=== PATIENT | male | born 1965 | race Caucasian/White ===

== ENCOUNTER 2018-06-08 15:36 | Emergency (ER) | payer MEDICAID ==
[2018-06-08 15:50] VITALS: BP 138/99
[2018-06-08] MEDS ORDERED: KETOROLAC TROMETHAMINE 60 MG/2 ML SDV IM ONE (16:10)
[2018-06-08] MEDS ORDERED: CARISOPRODOL 350 MG TABLET PO ONE (16:10)
[2018-06-08] MEDS ORDERED: PREDNISONE 20 MG TABLET PO ONE (16:11)
--- NOTE | 2018-06-08 16:16 | ER Document Report ---
ED General - General Chief Complaint: Neck Problem Stated Complaint: PAIN FROM NECK TO PEG Time Seen by Provider: 06/08/18 16:01 Notes: 53-year-old male PMH chronic neck and back pain here with complaints of left lower back pain radiating down the left leg to the foot for the past few days. He has taken [id number] pain medication for the symptoms. Pain is worse with movement. Pain is improved with minimizing movement. He has not had any incontinence retention numbness tingling weakness IV drug use. He states he was seeing Dr. Gray for pain management however he reports that Dr. Gray's office close down suddenly. TRAVEL OUTSIDE OF THE [place] IN LAST 30 DAYS: No - Related Data Allergies/Adverse Reactions: cyclobenzaprine HCl [From Flexeril] Allergy (Verified 06/08/18 15:37) Past Medical History - Social History Smoking Status: Unknown if Ever Smoked Family History: Reviewed & Not Pertinent Pulmonary Medical History: Reports: Hx Pneumonia Denies: Hx Tuberculosis Neurological Medical History: Denies: Hx Seizures GI Medical History: Reports: Hx Gastroesophageal Reflux Disease Psychiatric Medical History: Reports: Hx Bipolar Disorder, Hx Depression, Hx Schizophrenia Past Surgical History: Reports: Hx Orthopedic Surgery - spinal surgery, carpal tunnel, trigger finger. Denies: Hx Pacemaker - Immunizations Hx Diphtheria, Pertussis, Tetanus Vaccination: Yes - 4 years Review of Systems - Review of Systems Notes: See history of present illness for pertinent positive review of systems; otherwise all review of systems have been reviewed and are negative Physical Exam - Vital signs Vitals: Temp Pulse Resp BP Pulse Ox 98.3 F 100 16 138/99 H 98 06/08/18 15:49 06/08/18 15:49 06/08/18 15:49 06/08/18 15:49 06/08/18 15:49 - Notes Notes: PHYSICAL EXAMINATION: GENERAL: Well-appearing and in no acute distress. HEAD: Atraumatic, normocephalic. EYES: Pupils equal round and reactive to light, extraocular movements intact, sclera anicteric, conjunctiva are normal. ENT: nares patent, oropharynx clear without exudates. Moist mucous membranes. NECK: Normal range of motion, supple without lymphadenopathy LUNGS: CTAB and equal. No wheezes rales or rhonchi. HEART: Regular rate and rhythm without murmurs ABDOMEN: Soft, no tenderness. No facial grimacing/wincing upon palpation. No guarding, no rebound. BACK: Minimal left paraspinal lumbar muscle TTP with left sciatic groove TTP EXTREMITIES: Normal range of motion, no pitting edema. No cyanosis. NEUROLOGICAL: Cranial nerves grossly intact. Normal motor exams. Mild toe numbness (chronic) but normal sensation elsewhere PSYCH: Normal mood, normal affect. SKIN: Warm, Dry, normal turgor, no rashes or lesions noted Course - Re-evaluation Re-evalutation: 06/08/18 16:15 MEDICAL DECISION MAKING: Concern for acute on chronic low back pain No red flags that are concerning for acute emergent pathology i.e. cauda equina Will prescribe Soma prednisone meloxicam and give a dose of Toradol prednisone Soma here Instructed follow-up PCP next day or few Patient understands and agrees to the plan of care - Vital Signs Vital signs: Temp Pulse Resp BP Pulse Ox 98.3 F 100 16 138/99 H 98 06/08/18 15:49 06/08/18 15:49 06/08/18 15:49 06/08/18 15:49 06/08/18 15:49 Discharge - Discharge Clinical Impression: Left sided sciatica Condition: Good Disposition: HOME, SELF-CARE Additional Instructions: You were seen in the emergency department at [facility]. Use the prescribed medications as needed for sciatica. If you were given any sedating medications, be sure not to operate heavy machinery (example - driving) and be sure you are not too sedated to walk appropriately. Please followup with your primary physician in the next few days for further management/evaluation. Please return to the emergency department for worsening of symptoms or any symptom that you deem to be concerning or life-threatening. Thank you for allowing us to be part of your care. Prescriptions: Carisoprodol [Soma 350 Mg Tablet] 350 mg PO BIDP PRN #10 tablet PRN Reason: back pain Meloxicam 7.5 mg PO DAILYP PRN #7 tablet PRN Reason: Prednisone [Deltasone 20 mg Tablet] 3 tab PO DAILY 4 Days tablet Referrals: IVIS WILLARD, PETEC [Primary Care Provider] - Follow up as needed
== END 2018-06-08 16:27 | disposition home or self-care (01) ==
LOC: ER 15:36
DX: M54.42 Lumbago with sciatica, left side (principal); M54.2 Cervicalgia; M54.9 Dorsalgia, unspecified; G89.29 Other chronic pain; M79.605 Pain in left leg
CPT/HCPCS: 99283; 96372; J3490; J1885; J7512

== ENCOUNTER 2019-06-02 09:01 | Emergency (ER) | payer MEDICAID ==
[2019-06-02 09:25] LABS: ABSOLUTE LYMPHOCYTES (AUTO) 1.2 10^3/uL (0.5-4.7); ABSOLUTE MONOCYTES (AUTO) 0.5 10^3/uL (0.1-1.4); ABSOLUTE NEUT (AUTO) 4.2 10^3/uL (1.7-8.2); BASOPHILS % (AUTO) 0.5 % (0-2); EOSINOPHILS % (AUTO) 0.3 % (0-6); HEMATOCRIT 37.7 % (37.9-51.0); HEMOGLOBIN 12.9 g/dL (13.5-17.0); LYMPHOCYTES % (AUTO) 19.7 % (13-45); MEAN CORPUSCULAR HEMOGLOBIN 31.1 pg (27.0-33.4); MEAN CORPUSCULAR HGB CONC 34.1 g/dL (32.0-36.0); MEAN CORPUSCULAR VOLUME 91 fl (80-97); MONOCYTES % (AUTO) 7.8 % (3-13); PLATELET COUNT 187 10^3/uL (150-450); RED BLOOD COUNT 4.14 10^6/uL (4.35-5.55); RED CELL DISTRIBUTION WIDTH 13.9 % (11.5-14.0); SEGMENTED NEUTROPHILS % (AUTO) 71.7 % (42-78); TOTAL CELLS COUNTED % (AUTO) 100 %; WHITE BLOOD COUNT 5.8 10^3/uL (4.0-10.5)
[2019-06-02 09:45] LABS: ALANINE AMINOTRANSFERASE 51 U/L (21-72); ALBUMIN 4.4 g/dL (3.5-5.0); ALKALINE PHOSPHATASE 118 U/L (38-126); ANION GAP 8 (5-19); ASPARTATE AMINO TRANSFERASE 82 U/L (17-59); BILIRUBIN,DIRECT 0.4 mg/dL (0.0-0.4); BILIRUBIN,TOTAL 0.9 mg/dL (0.2-1.3); BLOOD UREA NITROGEN 16 mg/dL (7-20); CALCIUM 9.7 mg/dL (8.4-10.2); CARBON DIOXIDE 28 mmol/L (22-30); CHLORIDE 105 mmol/L (98-107); CREATINE KINASE 944 U/L (55-170); GLUCOSE 90 mg/dL (75-110); POTASSIUM 4.1 mmol/L (3.6-5.0); SODIUM 141.2 mmol/L (137-145); TOTAL PROTEIN 7.4 g/dL (6.3-8.2)
[2019-06-02 09:57] LABS: CREATINE KINASE MB 5.94 ng/mL (<4.55); TROPONIN I < 0.012 ng/mL
[2019-06-02 09:58] LABS: URINE BARBITURATES SCREEN NEGATIVE; URINE BENZODIAZEPINES SCREEN UNCONFIRMED POSITIVE; URINE COCAINE SCREEN UNCONFIRMED POSITIVE; URINE MARIJUANA (THC) SCREEN UNCONFIRMED POSITIVE; URINE METHADONE SCREEN NEGATIVE; URINE PHENCYCLIDINE SCREEN NEGATIVE
--- NOTE | 2019-06-02 10:17 | ER Document Report ---
ED General - General Chief Complaint: Fall Injury Stated Complaint: POSSIBLE SYNCOPE Time Seen by Provider: 06/02/19 09:45 Primary Care Provider: IVIS WILLARD FNP-C [Primary Care Provider] - Follow up as needed TRAVEL OUTSIDE OF THE [place] IN LAST 30 DAYS: No - HPI Notes: Patient is a 54-year-old male that presents to the emergency department for chief complaint of fall. Patient presents by EMS. Patient was reportedly running from people he owed money to and went through a ditch tripping on a curb landing in the street. He was found by a bystander lying prone in the road. Bystander called EMS. Patient reportedly had a lot of sweat pooling around him. They are not sure how long he was lying there. Patient remembers tripping and falling while running but does not remember what time it happened at. He does think he hit his head and potentially knocked himself unconscious. Patient denies any drug use other than marijuana occasionally. He denies any alcohol use stating he has been sober for the last 3 years. Patient is complaining of pain in his right hip that is worse with movement. He describes it as a stabbing pain. Past Medical History: Reviewed in chart Past Surgical History: Reviewed in chart Social History: Reports occasional marijuana use. Denies tobacco no alcohol use Family History: Reviewed and noncontributory for presenting illness Allergies: Reviewed, see documented allergy list. REVIEW OF SYSTEMS: CONSTITUTIONAL : No fever No chills diaphoresis No recent illness EENT: No vision changes No congestion No sore throat CARDIOVASCULAR: No chest pain No palpitations RESPIRATORY: No shortness of breath No cough No difficulty breathing GASTROINTESTINAL: No abdominal pain No nausea No vomiting No diarrhea GENITOURINARY: No dysuria No hematuria No difficulty urinating MUSCULOSKELETAL: No back pain hip pain No arm pain SKIN: No rashes No lesions LYMPHATIC: No swollen, enlarged glands. NEUROLOGICAL: No lightheadedness No headache No weakness No paresthesias PSYCHIATRIC: No anxiety No depression PHYSICAL EXAMINATION: Vital signs reviewed, nursing noted reviewed. GENERAL: Appears intoxicated, somnolent, disheveled covered in dirt, and in no acute distress. HEAD: Atraumatic, normocephalic. EYES: Eyes appear normal, extraocular movements intact, sclera anicteric, conju nctiva are normal. ENT: no facial bone tenderness or fluctuance. no nasal septal hematoma. nares pa tent, oropharynx clear without exudates. Moist mucous membranes. NECK: no midline tenderness, Normal range of motion, supple without lymphadenopathy LUNGS: Breath sounds clear to auscultation bilaterally and equal. No wheezes rales or rhonchi. HEART: Regular rate and rhythm without murmurs ABDOMEN: Soft, nontender, normoactive bowel sounds. No rebound, guarding, or rigidity. No masses appreciated. EXTREMITIES: Right hip tenderness with normal range of motion and no deformity. Pelvis stable good range of motion, no pitting or edema. NEUROLOGICAL: somnolent, Moves all extremities spontaneously Motor and sensory grossly intact on exam. PSYCH: Normal mood, normal affect. SKIN: Warm, Dry, normal turgor, no rashes or lesions noted on exposed skin. Numerous linear scars to left forearm - Related Data Allergies/Adverse Reactions: cyclobenzaprine HCl [From Flexeril] Allergy (Verified 06/02/19 09:04) Penicillins Allergy (Verified 06/02/19 09:27) Past Medical History - Social History Smoking Status: Never Smoker Frequency of alcohol use: None Drug Abuse: Marijuana Family History: Reviewed & Not Pertinent Patient has suicidal ideation: No Patient has homicidal ideation: No Pulmonary Medical History: Reports: Hx Pneumonia Denies: Hx Tuberculosis Neurological Medical History: Denies: Hx Seizures Renal/ Medical History: Denies: Hx Peritoneal Dialysis GI Medical History: Reports: Hx Gastroesophageal Reflux Disease Psychiatric Medical History: Reports: Hx Bipolar Disorder, Hx Depression, Hx Schizophrenia Past Surgical History: Reports: Hx Orthopedic Surgery - spinal surgery, carpal tunnel, trigger finger. Denies: Hx Pacemaker - Immunizations Hx Diphtheria, Pertussis, Tetanus Vaccination: Yes - 4 years Physical Exam - Vital signs Vitals: Temp Pulse Resp BP Pulse Ox 98.6 F 106 H 12 106/84 96 06/02/19 09:03 06/02/19 09:03 06/02/19 09:03 06/02/19 09:03 06/02/19 09:03 Course - Re-evaluation Re-evalutation: 06/02/19 10:44 Vitals reviewed. Nursing notes reviewed. Patient appears intoxicated but is denying any drug use. His drug screen tested positive for opiates, benzodiaze pines, methamphetamine, cocaine, and marijuana. He has a mildly elevated CK consistent with mild dehydration and rhabdomyolysis however his renal function is normal. Patient's blood pressure at presentation was borderline and he was given IV fluids. He does report head injury and CT scan will be obtained to evaluate for intracranial injury. 06/02/19 13:14 After 1 L of IV fluid patient has a normal heart rate and blood pressure. Current BP is 118/83. His lab work does show elevated CK consistent with rhabdomyolysis however he has no renal insufficiency or electrolyte derangement to require admission to the hospital. He has improved with hydration. Patient will receive a second liter of fluids. He is more alert but still appears intoxicated. The remainder of his work-up is unremarkable including no injuries on imaging. Patient will be discharged home to the care of his sister when he is sober enough to ambulate without difficulty. Laboratory 06/02/19 06/02/19 06/02/19 08:20 08:20 08:20 WBC 5.8 RBC 4.14 L Hgb 12.9 L Hct 37.7 L MCV 91 MCH 31.1 MCHC 34.1 RDW 13.9 Plt Count 187 Seg Neutrophils % 71.7 Lymphocytes % 19.7 Monocytes % 7.8 Eosinophils % 0.3 Basophils % 0.5 Absolute Neutrophils 4.2 Absolute Lymphocytes 1.2 Absolute Monocytes 0.5 Absolute Eosinophils 0.0 Absolute Basophils 0.0 Sodium 141.2 Potassium 4.1 Chloride 105 Carbon Dioxide 28 Anion Gap 8 BUN 16 Creatinine 0.94 Est GFR ( Amer) > 60 Est GFR (Non-Af Amer) > 60 Glucose 90 Calcium 9.7 Total Bilirubin 0.9 Direct Bilirubin 0.4 Neonat Total Bilirubin Not Reportable Neonat Direct Bilirubin Not Reportable Neonat Indirect Bili Not Reportable AST 82 H ALT 51 Alkaline Phosphatase 118 Creatine Kinase 944 H CK-MB (CK-2) 5.94 H Troponin I < 0.012 Total Protein 7.4 Albumin 4.4 Urine Color Urine Appearance Urine pH Ur Specific [place] Urine Protein Urine Glucose (UA) Urine Ketones Urine Blood Urine Nitrite Urine Bilirubin Urine Urobilinogen Ur Leukocyte Esterase Urine WBC (Auto) Urine RBC (Auto) U Hyaline Cast (Auto) Urine Bacteria (Auto) Squamous Epi Cells Auto Calcium Oxalate Cr Auto Urine Mucus (Auto) Urine Ascorbic Acid Urine Opiates Screen Urine Methadone Screen Ur Barbiturates Screen Ur Phencyclidine Scrn Ur Amphetamines Screen U Benzodiazepines Scrn Urine Cocaine Screen U Marijuana (THC) Screen 06/02/19 06/02/19 09:20 09:20 WBC RBC Hgb Hct MCV MCH MCHC RDW Plt Count Seg Neutrophils % Lymphocytes % Monocytes % Eosinophils % Basophils % Absolute Neutrophils Absolute Lymphocytes Absolute Monocytes Absolute Eosinophils Absolute Basophils Sodium Potassium Chloride Carbon Dioxide Anion Gap BUN Creatinine Est GFR ( Amer) Est GFR (Non-Af Amer) Glucose Calcium Total Bilirubin Direct Bilirubin Neonat Total Bilirubin Neonat Direct Bilirubin Neonat Indirect Bili AST ALT Alkaline Phosphatase Creatine Kinase CK-MB (CK-2) Troponin I Total Protein Albumin Urine Color YELLOW Urine Appearance TURBID Urine pH 5.0 Ur Specific [place] 1.029 Urine Protein 30 H Urine Glucose (UA) NEGATIVE Urine Ketones NEGATIVE Urine Blood NEGATIVE Urine Nitrite NEGATIVE Urine Bilirubin NEGATIVE Urine Urobilinogen 2.0 H Ur Leukocyte Esterase NEGATIVE Urine WBC (Auto) 3 Urine RBC (Auto) 8 U Hyaline Cast (Auto) 17 Urine Bacteria (Auto) 1+ Squamous Epi Cells Auto <1 Calcium Oxalate Cr Auto MANY Urine Mucus (Auto) MOD Urine Ascorbic Acid NEGATIVE Urine Opiates Screen UNCONFIRMED POSITIVE Urine Methadone Screen NEGATIVE Ur Barbiturates Screen NEGATIVE Ur Phencyclidine Scrn NEGATIVE Ur Amphetamines Screen U Benzodiazepines Scrn UNCONFIRMED POSITIVE Urine Cocaine Screen UNCONFIRMED POSITIVE U Marijuana (THC) Screen UNCONFIRMED POSITIVE Cervical Spine CT 06/02/19 10:30 IMPRESSION: No acute findings Head CT 06/02/19 10:30 IMPRESSION: NORMAL BRAIN CT WITHOUT CONTRAST. EVIDENCE OF ACUTE STROKE: NO. Hip/Pelvis X-Ray 06/02/19 10:30 IMPRESSION: NEGATIVE STUDY OF THE RIGHT HIP. NO RADIOGRAPHIC EVIDENCE OF ACUTE INJURY. 06/02/19 13:43 Patient was able to ambulate around the entire emergency room with a steady gait. He is able to hold a conversation and speaking clear sentences. He is discharged into the care of his sister. - Vital Signs Vital signs: Temp Pulse Resp BP Pulse Ox 97.9 F 106 H 18 118/83 98 06/02/19 13:03 06/02/19 09:03 06/02/19 13:09 06/02/19 13:09 06/02/19 13:09 - Laboratory Result Diagrams: 06/02/19 08:20 06/02/19 08:20 Laboratory results interpreted by me: 06/02/19 06/02/19 06/02/19 08:20 08:20 08:20 RBC 4.14 L Hgb 12.9 L Hct 37.7 L AST 82 H Creatine Kinase 944 H CK-MB (CK-2) 5.94 H Urine Protein Urine Urobilinogen 06/02/19 09:20 RBC Hgb Hct AST Creatine Kinase CK-MB (CK-2) Urine Protein 30 H Urine Urobilinogen 2.0 H Discharge - Discharge Clinical Impression: Benzodiazepine abuse, Cocaine abuse, Methamphetamine abuse, Opiate abuse, continuous, Right hip pain Closed head injury Qualifiers: Encounter type: initial encounter Qualified Code(s): S09.90XA - Unspecified injury of head, initial encounter Rhabdomyolysis Qualifiers: Rhabdomyolysis type: non-traumatic Qualified Code(s): M62.82 - Rhabdomyolysis Condition: Stable Disposition: HOME, SELF-CARE Instructions: Head Injury Precautions ([facility]) Additional Instructions: You need to increase the amount of water you are drinking daily. Drink at least 8, 8 ounce glasses of water or more if you are out in the sun. Do not use illicit drugs including marijuana, cocaine, methamphetamine, opiates and benzodiazepines Please return to the emergency department if you have any worsening, or concern of your symptoms. Please return to the emergency department if you develop chest pain, difficulty breathing, severe abdominal pain, or ongoing vomiting. Please follow-up with your primary care physician in 2-3 days and any other recommended physicians. If prescribed, take all medications as directed. If you have any questions or concerns do not hesitate to return the emergency department for evaluation. [] Referrals: IVIS WILLARD, RECONCILIATION MACHINE OPERATOR-C [Primary Care Provider] - Follow up as needed
[2019-06-02] MEDS ORDERED: NORMAL SALINE 1000 ML 1,000 ML IV ONE ×2 (10:29→10:31)
[2019-06-02] MEDS ORDERED: NALOXONE HCL INJ/PF 0.4 MG/1 ML SDV IV ONE (10:29)
[2019-06-02 10:50] LABS: APPEARANCE,URINE TURBID; BILIRUBIN,URINE NEGATIVE (NEGATIVE); CALCIUM OXALATE CRYSTALS,URINE MANY /HPF; COLOR,URINE YELLOW; GLUCOSE, URINE NEGATIVE (NEGATIVE); KETONES,URINE NEGATIVE (NEGATIVE); LEUKOCYTE ESTERASE,URINE NEGATIVE (NEGATIVE); NITRITE,URINE NEGATIVE (NEGATIVE); PROTEIN,URINE 30 mg/dL (NEGATIVE); URINE SPECIFIC GRAVITY 1.029
--- NOTE | 2019-06-02 11:18 | RADIOLOGY REPORT (SQ) ---
EXAM DESCRIPTION: CT HEAD WITHOUT COMPLETED DATE/TIME: 06/02/2019 11:08 am REASON FOR STUDY: trauma COMPARISON: CT brain 04/23/2013, 05/20/2009, 08/22/2008 TECHNIQUE: Axial images acquired through the brain without intravenous contrast. Images reviewed wi th bone, brain and subdural windows. Additional sagittal and coronal reconstructions were generated. Images stored on PACS. All CT scanners at this facility use dose modulation, iterative reconstruction, and/or weight based d osing when appropriate to reduce radiation dose to as low as reasonably achievable (ALARA). [facility]: Dose Right [facility]: CareDose [facility]: Dose Right [facility]: Teradose 4D [facility]: Fidelis RADIATION DOSE: CT Rad equipment meets quality standard of care and radiation dose reduction techniq ues were employed. CTDIvol: 53.2 mGy. DLP: 1017 mGy-cm. mGy. LIMITATIONS: Mild motion artifact FINDINGS: VENTRICLES: Normal size and contour. CEREBRUM: No masses. No hemorrhage. No midline shift. No evidence for acute infarction. Normal gra y/white matter differentiation. No areas of low density in the white matter. CEREBELLUM: No masses. No hemorrhage. No alteration of density. No evidence for acute infarction. EXTRAAXIAL SPACES: No fluid collections. No masses. ORBITS AND GLOBE: No intra- or extraconal masses. Normal contour of globe without masses. CALVARIUM: No fracture. PARANASAL SINUSES: No fluid or mucosal thickening. SOFT TISSUES: No mass or hematoma. OTHER: No other significant finding. IMPRESSION: NORMAL BRAIN CT WITHOUT CONTRAST. EVIDENCE OF ACUTE STROKE: NO. COMMENT: Quality ID # [id number]: Final reports with documentation of one or more dose reduction techniques (e.g., Automated exposure control, adjustment of the mA and/or kV according to patient size, use of iterative reconstruction technique) TECHNICAL DOCUMENTATION: JOB ID: [id number] [employer]- All Rights Reserved Reading location - IP/workstation name: [email or web address]
--- NOTE | 2019-06-02 11:22 | RADIOLOGY REPORT (SQ) ---
EXAM DESCRIPTION: CT CERVICAL SPINE WITHOUT COMPLETED DATE/TIME: 06/02/2019 11:08 am REASON FOR STUDY: trauma COMPARISON: 05/28/2009 CT cervical spine TECHNIQUE: Axial images acquired through the cervical spine without intravenous contrast. Images re viewed with lung, soft tissue and bone windows. Reconstructed coronal and sagittal MPR images review ed. Images stored on PACS. All CT scanners at this facility use dose modulation, iterative reconstruction, and/or weight based d osing when appropriate to reduce radiation dose to as low as reasonably achievable (ALARA). [facility]: Dose Right [facility]: CareDose [facility]: Dose Right [facility]: Teradose 4D [facility]: [employer] RADIATION DOSE: CT Rad equipment meets quality standard of care and radiation dose reduction techniq ues were employed. CTDIvol: 20.3 mGy. DLP: 419 mGy-cm. mGy. LIMITATIONS: None. FINDINGS: ALIGNMENT: There is very mild convex rightward cervical curvature unchanged from prior CT. MINERALIZATION: Normal. VERTEBRAL BODIES: No fractures or dislocation. DISCS: Post discectomy and fusion from anterior approach at C5-6. Minimal bilateral bony foraminal n arrowing at this level. No significant central stenosis FACETS, LATERAL MASSES, POSTERIOR ELEMENTS: No fractures. No dislocation. No acute findings. HARDWARE: None in the spine. VISUALIZED RIBS: No fractures. LUNG APICES AND SOFT TISSUES: No significant or acute findings. OTHER: No other significant finding. IMPRESSION: No acute findings TECHNICAL DOCUMENTATION: JOB ID: [id number] Quality ID # [id number]: Final reports with documentation of one or more dose reduction techniques (e.g., Au tomated exposure control, adjustment of the mA and/or kV according to patient size, use of iterative reconstruction technique) 2010 [employer]- All Rights Reserved Reading location - IP/workstation name: [email or web address]
--- NOTE | 2019-06-02 12:17 | RADIOLOGY REPORT (SQ) ---
EXAM DESCRIPTION: HIP RIGHT AP/LATERAL COMPLETED DATE/TIME: 06/02/2019 11:17 am REASON FOR STUDY: trauma COMPARISON: None. NUMBER OF VIEWS: Two views. TECHNIQUE: AP pelvis and additional frog-leg view of the right hip. LIMITATIONS: Rotated to the RA0 position on the frontal film FINDINGS: MINERALIZATION: Normal. RIGHT HIP: No fracture or dislocation. No worrisome bone lesions. No significant joint space narrow ing or bony spurring. LEFT HIP: No fracture or dislocation. No worrisome bone lesions. No significant joint space narrowi ng or bony spurring. PUBIS AND ISCHIUM: No fracture. PELVIS: No fracture. SACRUM: No fracture or dislocation. No worrisome bone lesions. LOWER LUMBAR SPINE: No fracture or dislocation. No worrisome bone lesions. No significant disc disea se. SOFT TISSUES: No findings. OTHER: No other significant finding. IMPRESSION: NEGATIVE STUDY OF THE RIGHT HIP. NO RADIOGRAPHIC EVIDENCE OF ACUTE INJURY. TECHNICAL DOCUMENTATION: JOB ID: [id number] [employer]- All Rights Reserved Reading location - IP/workstation name: [email or web address]
[2019-06-02 13:20] VITALS: BP 118/83
--- NOTE | 2019-06-02 17:59 | EKG REPORT ---
SEVERITY:- NORMAL ECG - SINUS RHYTHM : Confirmed by: Victoriano Ames 02-Jun-2019 17:58:09
== END 2019-06-02 14:06 | disposition home or self-care (01) ==
LOC: ER 09:01
DX: S09.90XA Unspecified injury of head, initial encounter (principal); M25.551 Pain in right hip; M62.82 Rhabdomyolysis; F14.10 Cocaine abuse, uncomplicated; F19.10 Other psychoactive substance abuse, uncomplicated; F11.20 Opioid dependence, uncomplicated; R55 Syncope and collapse; W01.10XA Fall on same level from slipping, tripping and stumbling with subsequent striking against unspecified object, initial encounter
CPT/HCPCS: 93005; 99285; 96361; 96374; 36415; 82553; 82550; 85025; 80053; 81001; 84484; 80307 ×2; 73502; 70450; 72125; 93010; G0480; J2310; J7030